=== PATIENT | male | born 1960 | race African-American/Black ===

== ENCOUNTER 2017-10-16 14:46 | Inpatient (IN) | payer MEDICARE ==
[~2017-10-16] VITALS: Ht 180.3 cm; Wt 48.8 kg
[~2017-10-16 14:46] MED LIST: AMITRIPTYLINE H25 M1 PO; ANUSOL HC CREAM30 GM TP; ATIVAN 0.50.5 MG/TAB PO; ATIVAN 1MG T1 MG/TAB PO; AVELOX 400MG T400 MG PO; BENICAR40 MG PO; BUDEPRION SR150 M1 PO; CELEXA40 MG PO; COZAAR 50MG50 MG/TAB PO; DESYREL 50MG50 MG PO; DILANTIN 100MG100 MG PO; ELAVIL100 MG PO; GLUCOPHAGE500 MG/TAB; GLUCOPHAGE500 MG/TAB PO; KLONOPIN 0.5MG0.5 MG PO; LATUDA80 MG PO; LEVAQUIN 750MG750 M1 PO; NORCO 325 MG-51 TAB PO; NORVASC 5MG5 MG/TAB; NORVASC 5MG5 MG/TAB PO; PACERONE400 MG PO; PRIL40 PO; SEROQUEL XR300 MG PO; SEROQUEL300 MG PO; VALIUM 5MG T5 MG/TAB PO; ZOFRAN 4MG T4 MG/TAB PO
[2017-10-16 15:26] LABS: BASO % 0.6 % (0.0-2.0); EOS # 0.1 (0.0-0.7); EOS % 1.5 % (0-4.0); GRAN % 64.2 % (42.2-75.2); HEMATOCRIT 38.1 % (42.0-52.0); HEMOGLOBIN 12.7 g/dl (13.5-18.0); LYMPH # 1.1 (1.2-3.4); LYMPH % 23.7 % (20.0-51.0); MEAN CELL VOLUME 94 fl (80.0-100.0); MEAN CORPUSCULAR HEMOGLOBIN 31 pg (27.0-31.0); MEAN CORPUSCULAR HGB CONC 33 g/dl (33.0-37.0); MONO # 0.5 (0.1-0.6); MONO % 9.8 % (1.7-9.3); PLATELET COUNT 247 K/mm3 (130-400); RED BLOOD COUNT 4.07 M/mm3 (4.20-5.60); REDCELL DISTRIBUTION WIDTH-CV 14.7 % (11.5-14.5)
[2017-10-16 15:40] LABS: ALANINE AMINOTRANSFERASE 80 U/L (21-72); ALBUMIN 3.5 gm/dL (3.5-5.0); ALKALINE PHOSPHATASE 543 U/L (50-136); ANION GAP 12 mmol/L (7-16); AST,SGOT 50 U/L (15-37); BILIRUBIN,TOTAL 0.4 mg/dL (0.0-1.0); BLOOD UREA NITROGEN 14 mg/dL (9-20); CALCIUM 9.3 mg/dL (8.4-10.2); CARBON DIOXIDE 28 mmol/L (22-30); CHLORIDE 95 mmol/L (98-107); GLUCOSE 103 mg/dL (74-106); LIPASE 109 U/L (23-300); POTASSIUM 3.8 mmol/L (3.4-5.0); SODIUM 134 mmol/L (137-145); TOTAL PROTEIN 7.1 gm/dL (6.4-8.2)
[2017-10-16 15:49] LABS: TROPONIN-I < 0.012 ng/mL (0.000-0.034)
[2017-10-16] MEDS ORDERED: COZAAR100 MG PO (16:23)
[2017-10-16] MEDS ORDERED: GEODON60 MG PO (16:30)
[2017-10-16 19:25] VITALS: BP 112/72; PULSE 88; TEMP 98.2
[2017-10-16 20:00] VITALS: BP 112/72; PULSE 88; TEMP 98.2
[2017-10-16 21:29] LABS: COLLECTION METHOD CLEAN CATCH
[2017-10-16 21:34] LABS: PH 7 (5-8); SQUAMOUS EPITHELIAL 0-2 /hpf; URINE APPEARANCE Clear; URINE BACTERIA None Seen /hpf; URINE BILIRUBIN Negative (NEGATIVE); URINE BLOOD Negative (NEGATIVE); URINE COLOR Amber; URINE GLUCOSE Negative (NEGATIVE); URINE KETONE Negative (NEGATIVE); URINE LEUKOCYTE ESTERASE Negative (NEGATIVE); URINE NITRATE Negative (NEGATIVE); URINE PROTEIN(semi-quant) Negative (NEGATIVE); URINE UROBILINOGEN >=4.0 mg/dL (NEGATIVE)
[2017-10-17] VITALS (12 sets, daily range): BP systolic 97–152; BP diastolic 55–97; PULSE 8–93; TEMP 97.2–98.6
[2017-10-17 06:08] LABS: BASO % 0.3 % (0.0-2.0); EOS # 0.1 (0.0-0.7); GRAN % 61.7 % (42.2-75.2); LYMPH # 0.6 (1.2-3.4); LYMPH % 19.3 % (20.0-51.0); MEAN CELL VOLUME 94 fl (80.0-100.0); MEAN CORPUSCULAR HGB CONC 33 g/dl (33.0-37.0); MEAN PLATELET VOLUME 9.1 fl (7.4-10.4); MONO # 0.5 (0.1-0.6); MONO % 14.4 % (1.7-9.3); PLATELET COUNT 214 K/mm3 (130-400); RED BLOOD COUNT 3.69 M/mm3 (4.20-5.60); REDCELL DISTRIBUTION WIDTH-CV 14.8 % (11.5-14.5)
[2017-10-17 06:11] LABS: HEMATOCRIT 34.7 % (42.0-52.0); HEMOGLOBIN 11.4 g/dl (13.5-18.0); MEAN CORPUSCULAR HEMOGLOBIN 31 pg (27.0-31.0)
[2017-10-17 06:17] LABS: CALCIUM 8.5 mg/dL (8.4-10.2); CREATININE, serum 1.14 mg/dL (0.66-1.25); POTASSIUM 3.5 mmol/L (3.4-5.0)
[2017-10-18] VITALS (10 sets, daily range): BP systolic 123–167; BP diastolic 75–99; PULSE 47–101; TEMP 98–98.4
[2017-10-19 05:32] VITALS: BP 133/96; PULSE 98; TEMP 98.3
[2017-10-19 08:40] LABS: BASO % 0.3 % (0.0-2.0); EOS % 0.1 % (0-4.0); GRAN # 5.5 (1.4-6.5); GRAN % 78.9 % (42.2-75.2); HEMATOCRIT 37.1 % (42.0-52.0); HEMOGLOBIN 12.4 g/dl (13.5-18.0); LYMPH # 0.6 (1.2-3.4); MEAN CELL VOLUME 92 fl (80.0-100.0); MEAN CORPUSCULAR HEMOGLOBIN 31 pg (27.0-31.0); MEAN CORPUSCULAR HGB CONC 33 g/dl (33.0-37.0); MEAN PLATELET VOLUME 9.1 fl (7.4-10.4); MONO # 0.8 (0.1-0.6); MONO % 11.6 % (1.7-9.3); PLATELET COUNT 254 K/mm3 (130-400); RED BLOOD COUNT 4.03 M/mm3 (4.20-5.60); REDCELL DISTRIBUTION WIDTH-CV 14.5 % (11.5-14.5)
[2017-10-19 08:47] LABS: CALCIUM 9.1 mg/dL (8.4-10.2); CREATININE, serum 1.09 mg/dL (0.66-1.25); POTASSIUM 3.5 mmol/L (3.4-5.0)
[2017-10-19] MEDS ORDERED: ZOFRAN ODT4 MG PO (09:31)
[2017-10-19] MEDS ORDERED: PERCOCET 325 MG1 TA2 PO (09:31)
[2017-10-19] MEDS ORDERED: FENTANYL 12MCG TD (09:31)
[2017-10-19] MEDS ORDERED: MIRALAX510G PO (09:31)
[2017-10-19 10:00] VITALS: BP 132/88; PULSE 86; TEMP 98.4
== END 2017-10-19 11:15 | disposition hospice, home (50) | DRG 374 ==
LOC: COL.ER → EDBD 14:46 → COL.ER 14:47 → SURG 17:15
PROVIDERS: Emergency Medicine; Family Medicine; Internal Medicine Gastroenterology; Urology
PROC: 0D7P8DZ Dilation of Rectum with Intraluminal Device, Via Natural or Artificial Opening Endoscopic (ICD-10-PCS; 2017-10-17)
PROC: 0DBP8ZX Excision of Rectum, Via Natural or Artificial Opening Endoscopic, Diagnostic (ICD-10-PCS; principal; 2017-10-17 12:00)
PROC: BT14ZZZ Fluoroscopy of Kidneys, Ureters and Bladder (ICD-10-PCS; 2017-10-18)
PROC: 0T788DZ Dilation of Bilateral Ureters with Intraluminal Device, Via Natural or Artificial Opening Endoscopic (ICD-10-PCS; 2017-10-18 17:15)
DX: C18.7 Malignant neoplasm of sigmoid colon (principal); E43 Unspecified severe protein-calorie malnutrition; C78.6 Secondary malignant neoplasm of retroperitoneum and peritoneum; N13.1 Hydronephrosis with ureteral stricture, not elsewhere classified; Z68.1 Body mass index [BMI] 19.9 or less, adult; Z51.5 Encounter for palliative care; I10 Essential (primary) hypertension; F17.210 Nicotine dependence, cigarettes, uncomplicated; E11.9 Type 2 diabetes mellitus without complications
CPT/HCPCS: 99222-AI; 99232-AI; 99233-AI; 99239; C1769; C1876; C2617; J0330; J0690; J1100; J1644; J1956; J2270; J2405; J2704; J3010; J7030; J7120; J7121; Q9967